=== PATIENT | female | born 1960 | race Caucasian/White ===

== ENCOUNTER 2021-11-03 16:22 | Emergency (ER) | payer OTHER ==
[2021-11-03 18:02] LABS: HEMOGLOBIN 15.7 gm/dl (12.3-15.3); RED BLOOD COUNT 5.41 M/UL (4.00-5.10); WHITE BLOOD COUNT 11.3 K/UL (4.5-11.0)
[2021-11-03 18:28] LABS: BUN/CREATININE RATIO 30 (0-10)
== END 2021-11-04 01:10 | disposition short-term general hospital (02) ==
LOC: EDBD 16:22 → ER1 16:22
PROVIDERS: Emergency Medicine
DX: G93.89 Other specified disorders of brain (principal); G93.6 Cerebral edema; R91.8 Other nonspecific abnormal finding of lung field; Z20.822 Contact with and (suspected) exposure to COVID-19; R41.82 Altered mental status, unspecified
CPT/HCPCS: 70450; 71045; 80053; 82140; 82550; 82553; 83605; 83735; 84100; 84484; 85025; 87040; 96374; 96375; 99285; G0480; J1100; J1953; U0002